=== PATIENT | male | born 1955 | race Hispanic/Latino ===

== ENCOUNTER → 2018-04-23 | Outpatient (CLI) | payer OTHER ==
[~2018-04-23] MED LIST: ASPI-1012 PO; BRIM5DRO4 OU; CHOL50004 PO; CLOT15CR62 TP; HYDR-4457 PO; LATA7.5D OU; LISI-613 PO; PREG100C PO; TIMO5SOL10 OU; TRIAM15CRM TP; [UNRECOGNIZED DRUG - CODE] PO
== END | disposition home or self-care (01) ==
LOC: OIH 08:07
PROVIDERS: ATTEND Internal Medicine
DX: Z13.6 Encounter for screening for cardiovascular disorders (principal)
CPT/HCPCS: 75571

== ENCOUNTER → 2018-08-04 | Outpatient (CLI) | payer OTHER | END | disposition home or self-care (01) | LOC: RAH 10:13 | PROVIDERS: ATTEND Internal Medicine | DX: R05 Cough (principal) | CPT/HCPCS: 71046 ==

== ENCOUNTER → 2018-08-19 | Outpatient (CLI) | payer OTHER ==
[~2018-08-19] MED LIST changes: +IOHEXOL 350 MG/ML 100ML INFUS..BTL IV ONE
== END | disposition home or self-care (01) ==
LOC: RAH 09:38
PROVIDERS: ATTEND Internal Medicine Gastroenterology
DX: K80.20 Calculus of gallbladder without cholecystitis without obstruction (principal); N28.1 Cyst of kidney, acquired
CPT/HCPCS: 74170; Q9967

== ENCOUNTER → 2019-08-30 | Outpatient (CLI) | payer OTHER ==
[~2019-08-30] MED LIST changes: -ASPI-1012 PO; -BRIM5DRO4 OU; -CHOL50004 PO; -CLOT15CR62 TP; -HYDR-4457 PO; -LATA7.5D OU; -LISI-613 PO; -PREG100C PO; -TIMO5SOL10 OU; -TRIAM15CRM TP; -[UNRECOGNIZED DRUG - CODE] PO
== END | disposition home or self-care (01) ==
LOC: RAH 08:40
PROVIDERS: ATTEND Internal Medicine Gastroenterology
DX: K86.3 Pseudocyst of pancreas (principal); R93.3 Abnormal findings on diagnostic imaging of other parts of digestive tract
CPT/HCPCS: 74170; Q9967

== ENCOUNTER → 2019-10-12 | Outpatient (CLI) | payer OTHER ==
[~2019-10-12] MED LIST changes: +ASPI-1012 PO; +BRIM5DRO4 OU; +CHOL50004 PO; +CLOT15CR23 TP; +HYDR-4457 PO; -IOHEXOL 350 MG/ML 100ML INFUS..BTL IV ONE; +LATA7.5D OU; +LISI-613 PO; +PREG100C PO; +TIMO5SOL10 OU; +TRIAM15CRM TP; +[UNRECOGNIZED DRUG - CODE] PO
== END | disposition home or self-care (01) ==
LOC: RAH 15:54
PROVIDERS: ATTEND Internal Medicine
DX: Z01.818 Encounter for other preprocedural examination (principal)
CPT/HCPCS: 71046

== ENCOUNTER 2020-05-03 08:37 | Day surgery (SDC) | payer OTHER ==
[2020-04-28 09:00] VITALS: BP 149/88
[2020-04-28 10:46] LABS: BASOPHILS % (AUTO) 1.2 % (0.0-5.0); EOSINOPHILS % (AUTO) 3.3 % (0.0-8.0); LYMPHOCYTES % (AUTO) 24.9 % (21.0-51.0); MEAN CORPUSCULAR HEMOGLOBIN 29.2 pg (27.0-33.0); MEAN CORPUSCULAR HGB CONC 32.5 g/dL (32.0-36.0); MONOCYTES % (AUTO) 17.6 % (3.0-13.0); NEUTROPHILS % (AUTO) 52.8 % (40.0-77.0); PLATELET COUNT (AUTO) 204 K/uL (130-400); RED BLOOD CELL COUNT(AUTO) 4.89 MIL/uL (4.50-6.20); RED CELL DISTRIBUTION WIDTH 14.1 % (11.0-15.5); WHITE BLOOD COUNT (AUTO) 4.9 K/uL (4.8-10.8)
[2020-04-28 11:00] LABS: CREATININE 0.8 mg/dL (0.5-1.5); POTASSIUM 4.1 mmol/L (3.5-5.1)
[~2020-05-03] VITALS: Ht 170.2 cm; Wt 104.8 kg
[2020-05-03] VITALS (18 sets, daily range): BP systolic 124–156; BP diastolic 72–89
[~2020-05-03 08:37] MED LIST changes: +AEC81 PO; -ASPI-1012 PO; -BRIM5DRO4 OU; -CHOL50004 PO; -CLOT15CR23 TP; -HYDR-4457 PO; +IBUP-2077 PO; -LATA7.5D OU; -LISI-613 PO; +LISI40TA9 PO; -PREG100C PO; +ROSU20TA31 PO; +TAMS-1 PO; -TIMO5SOL10 OU; -TRIAM15CRM TP; -[UNRECOGNIZED DRUG - CODE] PO
[2020-05-03] MEDS ORDERED: LACTATED RINGERS 1000ML 1,000 ML IV ONE (10:07)
[2020-05-03] MEDS ORDERED: EPINEPHRINE 1 MG/ML 30ML VIAL IJ ONE (12:02)
[2020-05-03] MEDS ORDERED: CEFAZOLIN SODIUM 1 GM VIAL ONE ×2 (12:11→14:15)
[2020-05-03] MEDS ORDERED: LIDOCAINE PF 2% 5ML ABBOJECT ONE (12:23)
[2020-05-03] MEDS ORDERED: DEXAMETHASONE SOD PHOSPHATE 10MG/ML 1ML VIAL ONE (12:23)
[2020-05-03] MEDS ORDERED: PROPOFOL 10 MG/ML 20ML VIAL IV ONE (12:23)
[2020-05-03] MEDS ORDERED: SUCCINYLCHOLINE CHLORIDE 20 MG/ML 10 ML VIAL ONE (12:23)
[2020-05-03] MEDS ORDERED: GLYCOPYRROLATE 1 MG/5 ML SYRINGE ONE (12:23)
[2020-05-03] MEDS ORDERED: MIDAZOLAM HCL 1 MG/ML 2ML VIAL ONE (12:23)
[2020-05-03] MEDS ORDERED: ROCURONIUM 10MG/1ML SYR 10 MG/ML ML ONE (12:24)
[2020-05-03] MEDS ORDERED: FENTANYL CITRATE PF 50 MCG/1 ML 2ML VIAL ONE (12:24)
[2020-05-03] MEDS ORDERED: NEOSTIGMINE 5MG/5ML SYR IV ONE (12:24)
[2020-05-03] MEDS ORDERED: ONDANSETRON HCL 4 MG/2 ML VIAL ONE (12:24)
[2020-05-03] MEDS ORDERED: ROPIVACAINE 0.5% 5MG/ML 30ML IJ ONE (12:31)
[2020-05-03] MEDS: CEFAZOLIN SODIUM 1 GM VIAL IVP ONE ×2 (12:52→13:00)
[2020-05-03] MEDS ORDERED: EPHEDRINE SULFATE 50 MG/ML AMPULE ONE (12:53)
[2020-05-03] MEDS ORDERED: HYDR-4060 PO (15:39)
[2020-05-03] MEDS ORDERED: CEPH500B PO (15:39)
== END 2020-05-03 17:50 | disposition home or self-care (01) ==
LOC: DAH 08:37
PROVIDERS: ATTEND Orthopaedic Surgery
DX: S46.011A Strain of muscle(s) and tendon(s) of the rotator cuff of right shoulder, initial encounter (principal); Z20.822 Contact with and (suspected) exposure to COVID-19; M65.811 Other synovitis and tenosynovitis, right shoulder; M19.011 Primary osteoarthritis, right shoulder; M25.811 Other specified joint disorders, right shoulder; I10 Essential (primary) hypertension; E78.5 Hyperlipidemia, unspecified; E66.9 Obesity, unspecified; Z87.891 Personal history of nicotine dependence; Z98.890 Other specified postprocedural states; Z90.49 Acquired absence of other specified parts of digestive tract; Z72.89 Other problems related to lifestyle; Z82.49 Family history of ischemic heart disease and other diseases of the circulatory system; Z79.01 Long term (current) use of anticoagulants; Z82.3 Family history of stroke; Z79.82 Long term (current) use of aspirin; Z79.899 Other long term (current) drug therapy; W19.XXXA Unspecified fall, initial encounter; Y93.89 Activity, other specified; Y92.89 Other specified places as the place of occurrence of the external cause
CPT/HCPCS: 23130; 23412; 29820; 36415; 64415; 76942; 80048; 85025; 93005; A4215; A4221; A4222; A4223; A4565; A4600; A4649 ×5; A4663; A4930 ×2; A6204; C1713; C9803; G0168; J0171; J0330; J0690 ×2; J1100; J2001; J2250; J2405; J2704; J2710; J2795; J3010; J3490 ×2; J7030; J7120; U0003

== ENCOUNTER → 2020-09-20 | Outpatient (CLI) | payer OTHER ==
[~2020-09-20] MED LIST changes: +CEPH500B PO; +HYDR-4060 PO; +IOHEXOL 350 MG/ML 100ML INFUS..BTL IV ONE
== END | disposition home or self-care (01) ==
LOC: RAH 07:49
PROVIDERS: ATTEND Internal Medicine Gastroenterology
DX: K80.20 Calculus of gallbladder without cholecystitis without obstruction (principal); K86.2 Cyst of pancreas
CPT/HCPCS: 74170; Q9967

== ENCOUNTER 2021-06-04 07:56 | Day surgery (SDC) | payer OTHER ==
[2021-05-22 11:42] LABS: BASOPHILS % (AUTO) 1.1 % (0.0-5.0); EOSINOPHILS % (AUTO) 2.7 % (0.0-8.0); HEMATOCRIT 40.9 % (42-54); LYMPHOCYTES % (AUTO) 25.3 % (21.0-51.0); MEAN CORPUSCULAR HGB CONC 32.3 g/dL (32.0-36.0); MEAN CORPUSCULAR VOLUME 89.9 fL (79-99); MONOCYTES % (AUTO) 12.5 % (3.0-13.0); PLATELET COUNT (AUTO) 194 K/uL (130-400); RED BLOOD CELL COUNT(AUTO) 4.55 MIL/uL (4.50-6.20); RED CELL DISTRIBUTION WIDTH 14.6 % (11.0-15.5); WHITE BLOOD COUNT (AUTO) 5.5 K/uL (4.8-10.8)
[2021-05-22 12:00] LABS: CREATININE 0.7 mg/dL (0.5-1.5); POTASSIUM 4.2 mmol/L (3.5-5.1)
[2021-05-23 11:48] VITALS: BP 140/80
[2021-06-04] VITALS (17 sets, daily range): BP systolic 114–141; BP diastolic 66–88
[~2021-06-04] VITALS: Ht 170.2 cm; Wt 108.4 kg
[~2021-06-04 07:56] MED LIST changes: +BRIM5DRO4 OU; -CEPH500B PO; +CLOP75TA32 PO; -HYDR-4060 PO; -IOHEXOL 350 MG/ML 100ML INFUS..BTL IV ONE; +ISOS30TA92 PO; +LATA7.5D OU; -ROSU20TA31 PO; +ROSU40TA21 PO; -TAMS-1 PO; +TIMO1DRO5 OU
[2021-06-04] MEDS ORDERED: LACTATED RINGERS 1000ML 1,000 ML IV ONE (09:26)
[2021-06-04] MEDS: CEFAZOLIN SODIUM 1 GM VIAL ONE ×2 (09:40→14:46)
[2021-06-04] MEDS ORDERED: METO-409 PO (09:47)
[2021-06-04] MEDS ORDERED: EPINEPHRINE 1 MG/ML 30ML VIAL IJ ONE (13:12)
[2021-06-04] MEDS ORDERED: ROPIVACAINE 0.5% 5MG/ML 30ML IJ ONE (13:57)
[2021-06-04] MEDS ORDERED: LIDOCAINE PF 100MG/5ML (2%) SYRINGE 5ML ONE (13:59)
[2021-06-04] MEDS ORDERED: GLYCOPYRROLATE 1 MG/5 ML SYRINGE ONE (14:00)
[2021-06-04] MEDS ORDERED: ROCURONIUM 10MG/1ML SYR 10 MG/ML ML ONE (14:00)
[2021-06-04] MEDS ORDERED: PROPOFOL 10 MG/ML 20ML VIAL IV ONE (14:00)
[2021-06-04] MEDS ORDERED: ONDANSETRON 4MG INJ ONE (15:11)
[2021-06-04] MEDS ORDERED: FENTANYL CITRATE PF 50 MCG/1 ML 2ML VIAL ONE (15:16)
[2021-06-04] MEDS ORDERED: MEPERIDINE-PF 25 MG/ML SYG ONE (15:56)
[2021-06-04] MEDS ORDERED: NEOSTIGMINE 5MG/5ML SYR IV ONE (16:02)
[2021-06-04] MEDS ORDERED: HYDR-4060 PO (16:20)
[2021-06-04] MEDS ORDERED: CEPH500B PO (16:20)
== END 2021-06-04 17:55 | disposition home or self-care (01) ==
LOC: DAH 07:56
PROVIDERS: ATTEND Orthopaedic Surgery
DX: M75.21 Bicipital tendinitis, right shoulder (principal); M25.511 Pain in right shoulder; G89.29 Other chronic pain; M25.811 Other specified joint disorders, right shoulder; I10 Essential (primary) hypertension; I25.10 Atherosclerotic heart disease of native coronary artery without angina pectoris; I25.2 Old myocardial infarction; Z79.899 Other long term (current) drug therapy; Z79.01 Long term (current) use of anticoagulants; Z79.82 Long term (current) use of aspirin; Z90.49 Acquired absence of other specified parts of digestive tract; Z87.891 Personal history of nicotine dependence; Z86.73 Personal history of transient ischemic attack (TIA), and cerebral infarction without residual deficits; Z98.890 Other specified postprocedural states
CPT/HCPCS: 29822; 29824; 29826; 36415; 64415; 76942; 80048; 85025; 87635; A4215; A4221; A4222; A4223; A4565; A4600; A4649 ×2; A4663; A4930; A6204; C9803; J0171; J0690; J2001; J2175; J2405; J2704; J2710; J2795; J3010; J3490; J7120

== ENCOUNTER 2021-06-11 05:40 | Emergency (ER) | payer OTHER ==
[~2021-06-11] VITALS: Ht 170.2 cm; Wt 104.3 kg
[~2021-06-11 05:40] MED LIST changes: +CEPH500B PO; +HYDR-4060 PO; +METO-409 PO
[2021-06-11 06:43] LABS: APPEARANCE,URINE CLEAR (CLEAR); BILIRUBIN,URINE NEGATIVE (NEGATIVE); COLOR,URINE YELLOW (YELLOW); GLUCOSE, URINE (UA) NEGATIVE (NEGATIVE); KETONES,URINE NEGATIVE (NEGATIVE); LEUKOCYTE ESTERASE ,URINE NEGATIVE (NEGATIVE); NITRATE,URINE NEGATIVE (NEGATIVE); OCCULT BLOOD,URINE NEGATIVE (NEGATIVE); PROTEIN,URINE NEGATIVE (NEGATIVE); UROBILINOGEN,URINE 0.2 mg/dL (0.2-1.0)
[2021-06-11 07:14] VITALS: BP 158/98
[2021-06-11] MEDS ORDERED: LINA145C PO (09:38)
== END 2021-06-11 10:05 | disposition home or self-care (01) ==
LOC: EDH 05:40
DX: R33.9 Retention of urine, unspecified (principal); K59.03 Drug induced constipation; I10 Essential (primary) hypertension; Z79.899 Other long term (current) drug therapy; Z79.82 Long term (current) use of aspirin
CPT/HCPCS: 51702; 74018; 81003

== ENCOUNTER → 2021-07-11 | Outpatient (CLI) | payer OTHER ==
[~2021-07-11] MED LIST changes: +LINA145C PO
== END | disposition home or self-care (01) ==
LOC: RAH 12:45
PROVIDERS: ATTEND Urology
DX: K80.20 Calculus of gallbladder without cholecystitis without obstruction (principal); R33.8 Other retention of urine; N28.1 Cyst of kidney, acquired; I25.10 Atherosclerotic heart disease of native coronary artery without angina pectoris; K57.20 Diverticulitis of large intestine with perforation and abscess without bleeding; K57.90 Diverticulosis of intestine, part unspecified, without perforation or abscess without bleeding; M47.815 Spondylosis without myelopathy or radiculopathy, thoracolumbar region
CPT/HCPCS: 74176

== ENCOUNTER 2022-03-06 14:55 | Emergency (ER) | payer OTHER, MEDICARE ==
[~2022-03-06] VITALS: Ht 170.2 cm; Wt 106.6 kg
[~2022-03-06 14:55] MED LIST changes: +APIX5TAB PO; -CEPH500B PO; -CLOP75TA32 PO; +DOXA2TAB2 PO; -HYDR-4060 PO; -IBUP-2077 PO; -LINA145C PO
[2022-03-06 15:39] LABS: BASOPHILS % (AUTO) 1.1 % (0.0-5.0); EOSINOPHILS % (AUTO) 2.7 % (0.0-8.0); HEMATOCRIT 41.3 % (42-54); LYMPHOCYTES % (AUTO) 24.7 % (21.0-51.0); MEAN CORPUSCULAR HEMOGLOBIN 27.9 pg (27.0-33.0); MEAN CORPUSCULAR HGB CONC 33.4 g/dL (32.0-36.0); MEAN CORPUSCULAR VOLUME 83.6 fL (79-99); MONOCYTES % (AUTO) 8.4 % (3.0-13.0); NEUTROPHILS % (AUTO) 62.7 % (40.0-77.0); PLATELET COUNT (AUTO) 201 K/uL (130-400); RED BLOOD CELL COUNT(AUTO) 4.94 MIL/uL (4.50-6.20); RED CELL DISTRIBUTION WIDTH 16.3 % (11.0-15.5); WHITE BLOOD COUNT (AUTO) 5.2 K/uL (4.8-10.8)
[2022-03-06 15:54] LABS: CREATININE 0.9 mg/dL (0.5-1.5); POTASSIUM 3.8 mmol/L (3.5-5.1)
[2022-03-06 15:58] LABS: ALBUMIN 3.9 g/dL (3.5-5.0); TOTAL PROTEIN, SERUM 7.2 g/dL (6.0-8.3)
[2022-03-06] MEDS ORDERED: ACETAMINOPHEN 500 MG TABLET PO ONE (18:30)
[2022-03-06 18:52] LABS: INR 0.97 (0.85-1.15); PROTHROMBIN TIME 10.6 SEC (9.6-11.6)
[2022-03-06 18:54] LABS: PARTIAL THROMBOPLASTIN TIME 26.3 SEC (26.3-35.5)
[2022-03-06 18:59] VITALS: BP 159/83
== END 2022-03-06 19:35 | disposition home or self-care (01) ==
LOC: EDH 14:55
DX: R51.9 Headache, unspecified (principal); T45.515A Adverse effect of anticoagulants, initial encounter; I48.91 Unspecified atrial fibrillation; E78.00 Pure hypercholesterolemia, unspecified; I10 Essential (primary) hypertension; Z79.01 Long term (current) use of anticoagulants; Z79.1 Long term (current) use of non-steroidal anti-inflammatories (NSAID); Z79.82 Long term (current) use of aspirin; Z79.899 Other long term (current) drug therapy
CPT/HCPCS: 36415; 70450; 80053; 85025; 85610; 85730

== ENCOUNTER → 2022-04-10 | Outpatient (CLI) | payer OTHER ==
[~2022-04-10] MED LIST changes: +IOHEXOL-350 50ML VIAL IV ONE
== END | disposition home or self-care (01) ==
LOC: RAH 07:32
PROVIDERS: ATTEND Internal Medicine
DX: K80.20 Calculus of gallbladder without cholecystitis without obstruction (principal); R93.3 Abnormal findings on diagnostic imaging of other parts of digestive tract; I70.8 Atherosclerosis of other arteries; M47.815 Spondylosis without myelopathy or radiculopathy, thoracolumbar region
CPT/HCPCS: 74170; Q9967

== ENCOUNTER 2023-10-03 05:55 | Day surgery (SDC) | payer OTHER, MEDICARE ==
[2023-10-01 10:02] VITALS: BP 148/87; PULSE 54; RESP 18
[2023-10-01 11:29] LABS: INR 1.06 (0.85-1.15); PROTHROMBIN TIME 11.4 SEC (9.6-11.6)
[2023-10-01 11:30] LABS: PARTIAL THROMBOPLASTIN TIME 26.4 SEC (26.3-35.5)
[~2023-10-03] VITALS: Ht 170.2 cm; Wt 108.0 kg
[2023-10-03] VITALS (14 sets, daily range): BP systolic 110–131; BP diastolic 58–79; PULSE 50–59; RESP 11–17
[~2023-10-03 05:55] MED LIST changes: -AEC81 PO; +AMLO2.5T4 PO; -BRIM5DRO4 OU; +BRIM5DRO5 OU; -DOXA2TAB2 PO; +DRON400T7 PO; -IOHEXOL-350 50ML VIAL IV ONE; +METO-391 PO; -METO-409 PO; -ROSU40TA21 PO; +ROSU40TA70 PO; -TIMO1DRO5 OU; +TIMO1DRO9 OU
[2023-10-03] MEDS: ceFAZolin SODIUM 2 GM VIAL ONE (06:31)
[2023-10-03] MEDS: LACTATED RINGERS 1000ML 1,000 ML IV ONE (06:32)
[2023-10-03] MEDS ORDERED: acetaMINOPHEN 1,000 MG/100 ML VIAL IV ONE (06:45)
[2023-10-03] MEDS ORDERED: FAMOTIDINE 20MG VIAL IV ONE (06:45)
[2023-10-03] MEDS ORDERED: KETAMINE 50MG/ML SYRINGE 50 MG/ML DISP.SYRIN ONE (06:46)
[2023-10-03] MEDS ORDERED: ROPivacaine 0.5% 5MG/ML 30ML ONE (06:46)
[2023-10-03] MEDS ORDERED: rocuRONium bROMide 10MG/1ML 5ML VL ONE (06:50)
[2023-10-03] MEDS ORDERED: LIDOCAINE PF 100MG/5ML (2%) SYRINGE 5ML ONE (06:50)
[2023-10-03] MEDS ORDERED: proPOFol 10 MG/ML 20ML VIAL IV ONE (06:50)
[2023-10-03] MEDS ORDERED: FENTanyl CITRate PF 50 MCG/1 ML 2ML VIAL ONE (06:51)
[2023-10-03] MEDS ORDERED: EPINEPHrine PF 1MG (1:1,000) 1 MG/ML AMP ONE (06:56)
[2023-10-03] MEDS ORDERED: ONDANSETRON 4MG INJ ONE (07:26)
[2023-10-03] MEDS ORDERED: dexaMETHasone SOD PHOSPHATE 10MG/ML 1ML VIAL ONE (07:26)
[2023-10-03] MEDS: ceFAZolin SODIUM 2 GM VIAL IVPB ONE (07:30)
[2023-10-03] MEDS ORDERED: ePHEDrine SULFate 50 MG/ML AMPULE ONE (07:37)
[2023-10-03] MEDS ORDERED: NEOSTIGMINE METHYLSULFATE 1MG/ML IV ONE (08:36)
[2023-10-03] MEDS ORDERED: GLYCOPYRROLATE 0.2 MG/ML 5 ML VIAL ONE (08:36)
[2023-10-03] MEDS ORDERED: HYDR-4060 PO (10:28)
[2023-10-03] MEDS ORDERED: CYCL5TAB PO (10:28)
[2023-10-03] MEDS ORDERED: TRAM50TA4 PO (12:11)
== END 2023-10-03 11:43 | disposition home or self-care (01) ==
LOC: DAH 05:55
PROVIDERS: ATTEND Student in an Organized Health Care Education/Training Program
DX: S43.432A Superior glenoid labrum lesion of left shoulder, initial encounter (principal); M75.22 Bicipital tendinitis, left shoulder; M75.42 Impingement syndrome of left shoulder; M19.012 Primary osteoarthritis, left shoulder; M75.102 Unspecified rotator cuff tear or rupture of left shoulder, not specified as traumatic; M94.212 Chondromalacia, left shoulder; M94.8X1 Other specified disorders of cartilage, shoulder; I10 Essential (primary) hypertension; I25.2 Old myocardial infarction; M17.11 Unilateral primary osteoarthritis, right knee; Z79.899 Other long term (current) drug therapy; Z79.01 Long term (current) use of anticoagulants; X58.XXXA Exposure to other specified factors, initial encounter; Y93.89 Activity, other specified; Y92.89 Other specified places as the place of occurrence of the external cause; Y99.8 Other external cause status
CPT/HCPCS: 85610; 85730; 36415; 29828; 64415; 29824; 29826; A4663; J7030; A4565; J7120; J3490 ×5; J3010; J1100; J2001; J0171 ×2; J2704; J2405; J2710; J2795; J0690 ×2; A6223; A4649 ×2; A5120; A4215; A4223; A4222; A4221; A4600

== ENCOUNTER 2023-12-30 07:01 | Observation (INO) | payer OTHER, MEDICARE ==
[2023-12-24 11:30] LABS: APPEARANCE,URINE CLEAR (CLEAR); BILIRUBIN,URINE NEGATIVE (NEGATIVE); COLOR,URINE LIGHT-YELLOW (YELLOW); GLUCOSE, URINE (UA) NEGATIVE (NEGATIVE); KETONES,URINE NEGATIVE (NEGATIVE); LEUKOCYTE ESTERASE ,URINE NEGATIVE Leu/uL (NEGATIVE); NITRATE,URINE NEGATIVE (NEGATIVE); OCCULT BLOOD,URINE NEGATIVE (NEGATIVE); PROTEIN,URINE NEGATIVE (NEGATIVE); UROBILINOGEN,URINE 0.2 mg/dL (0.2-1.0)
[2023-12-24 11:32] VITALS: BP 112/79; PULSE 54; RESP 18; TEMP 98.4
[2023-12-24 11:34] LABS: ADD UA MICROSCOPIC NO
[2023-12-24 11:40] LABS: BASOPHILS # (AUTO) 0.08 K/uL (0.00-0.20); BASOPHILS % (AUTO) 1.2 % (0.0-5.0); EOSINOPHILS % (AUTO) 1.5 % (0.0-8.0); HEMATOCRIT 44.3 % (42-54); IMMATURE GRANULOCYTE ABSOLUTE 0.02 K/uL (0-1); LYMPHOCYTES # (AUTO) 1.6 K/uL (1.0-4.8); LYMPHOCYTES % (AUTO) 23.9 % (21.0-51.0); MEAN CORPUSCULAR HEMOGLOBIN 29.8 pg (27.0-33.0); MEAN CORPUSCULAR HGB CONC 33.6 g/dL (32.0-36.0); MEAN CORPUSCULAR VOLUME 88.6 fL (79-99); MONOCYTES # (AUTO) 0.9 K/uL (0.1-1.0); MONOCYTES % (AUTO) 12.6 % (3.0-13.0); NEUTROPHILS # (AUTO) 4.1 K/uL (1.8-7.7); NEUTROPHILS % (AUTO) 60.5 % (40.0-77.0); PLATELET COUNT (AUTO) 245 K/uL (130-400); WHITE BLOOD COUNT (AUTO) 6.7 K/uL (4.8-10.8)
[2023-12-24 11:53] LABS: CREATININE 0.9 mg/dL (0.5-1.3); POTASSIUM 4.2 mmol/L (3.5-5.1)
[2023-12-24 11:57] LABS: INR 1.08 (0.85-1.15); PROTHROMBIN TIME 11.6 SEC (9.6-11.6)
[2023-12-24 11:58] LABS: PARTIAL THROMBOPLASTIN TIME 27.9 SEC (26.3-35.5)
[~2023-12-30] VITALS: Ht 170.2 cm; Wt 106.8 kg
[2023-12-30] VITALS (33 sets, daily range): BP systolic 99–144; BP diastolic 51–81; PULSE 52–76; RESP 13–18; TEMP 97.4–98.3; O2SAT 96
[~2023-12-30 07:01] MED LIST changes: +IBUP-2077 PO; -ROSU40TA70 PO; +ROSU40TA88 PO
[2023-12-30] MEDS ORDERED: MIDAZOLAM HCL 1 MG/ML 2ML VIAL ONE (07:34)
[2023-12-30] MEDS ORDERED: LIDOCAINE PF 100MG/5ML (2%) SYRINGE 5ML ONE (07:34)
[2023-12-30] MEDS ORDERED: proPOFol 10 MG/ML 20ML VIAL IV ONE (07:34)
[2023-12-30] MEDS ORDERED: rocuRONium bROMide 10MG/1ML 5ML VL ONE ×2 (07:35→08:45)
[2023-12-30] MEDS ORDERED: FENTanyl CITRate PF 50 MCG/1 ML 2ML VIAL ONE ×3 (07:35→10:48)
[2023-12-30] MEDS ORDERED: phenylEPHRINE HCL 10 MG/ML 1ML VIAL IV ONE (07:38)
[2023-12-30] MEDS ORDERED: ROPivacaine 0.5% 5MG/ML 30ML ONE (07:40)
--- NOTE | 2023-12-30 07:55 | NUR ---
ORTHO COORDINATOR: KOOSJR SCORE 8 COMPLETED ON PAPER.
[2023-12-30] MEDS: ceFAZolin SODIUM 2 GM VIAL ONE (07:58)
[2023-12-30] MEDS: LACTATED RINGERS 1000ML 1,000 ML IV ONE (07:59)
[2023-12-30] MEDS ORDERED: ceFAZolin SODIUM 1 GM VIAL ONE (08:22)
[2023-12-30] MEDS ORDERED: VANCOMYCIN 1G/250ML KIT 250 ML IV ONE (08:23)
[2023-12-30] MEDS: ceFAZolin SODIUM 2 GM VIAL IVPB ONE (08:25)
[2023-12-30] MEDS ORDERED: TRANEXAMIC ACID 1000MG/10ML ONE (08:33)
[2023-12-30] MEDS ORDERED: ondanSETRON 4MG INJ ONE (08:45)
[2023-12-30] MEDS ORDERED: dexaMETHasone SOD PHOSPHATE 10MG/ML 1ML VIAL ONE (08:45)
[2023-12-30] MEDS ORDERED: ketOROlac 30MG VIAL (30MG/ML) ONE (08:46)
[2023-12-30] MEDS ORDERED: NEOSTIGMINE METHYLSULFATE 1MG/ML IV ONE (10:16)
[2023-12-30] MEDS ORDERED: GLYCOPYRROLATE 0.2 MG/ML 5 ML VIAL ONE (10:16)
[2023-12-30] MEDS ORDERED: TEMAZepam 15 MG CAPSULE PO PRN (10:30)
[2023-12-30] MEDS: 0.9%NACL 1000ML 1,000 ML IV SCH (10:30)
[2023-12-30] MEDS ORDERED: PoTASSium chl 10% ELIXIR 20MEQ 20 MEQ/15 ML UDCUP PO PRN (10:30)
[2023-12-30] MEDS ORDERED: PoTASSium chloRIDE 20MEQ/100ML 100 ML IV PRN (10:30)
[2023-12-30] MEDS ORDERED: ondanSETRON 4MG INJ IVP PRN (10:30)
[2023-12-30] MEDS ORDERED: CALCIUM CARB 500MG PO PRN (10:30)
[2023-12-30] MEDS ORDERED: DiphenhydrAMINE HCL 50 MG/ML VIAL IVP PRN (10:30)
[2023-12-30] MEDS ORDERED: HYDROcodone/APAP 5/325 1 TAB TABLET PO PRN (10:30)
[2023-12-30] MEDS ORDERED: FERROUS FUMARATE 324 MG TABLET PO PRN (10:30)
[2023-12-30] MEDS ORDERED: PoTASSium chloRIDE 20MEQ ER 20 MEQ ERTAB PO PRN (10:30)
--- NOTE | 2023-12-30 10:39 | OP ---
Operative Note: DATE OF PROCEDURE: 12/30/23 SURGEON: URI POLLOCK MD GRAPHIC DESIGN ASSISTANT: [Cira Marks CFA] ANESTHESIA: [General anesthesia plus regional] PREOPERATIVE DIAGNOSIS: [Left knee osteoarthritis] POSTOPERATIVE DIAGNOSIS: [Left knee osteoarthritis] IMPLANTS: [BIOMET VANGUARD. Femur size 67.5 left CR. Tibia size 75 fixed cruciate. Tibial liner size 10 by 71/75 CR. Patella size 31 x 8, asymmetric.] PROCEDURE: [Left total knee arthroplasty] ESTIMATED BLOOD LOSS: [100 mL] INDICATIONS: [68-year-old male with history of pain to the left knee that has a longer responded to conservative treatment. MRI with presence of grade 4 chondral lesions in the patella and femur as well as meniscal tear. The patient is brought to the OR for a total knee arthroplasty The patient understood the need for the procedure, risks, benefits and possible complications and agreed signed the consent form] DESCRIPTION OF PROCEDURE: [After adequate general anesthesia was achieved and regional block obtained the left lower extremity was prepped and draped in the usual manner previous placement of the tourniquet in the proximal thigh. The extremity was elevated and exsanguinated with an Esmarch bandage and the tourniquet was inflated to 250 mmHg removing then the Esmarch band. With the knee in flexion a longitudinal incision was then made in the anterior aspect through the skin followed by dissection of the subcutaneous tissue. An interosseous needle was then penetrated just medial to the tibial tuberosity into the proximal metaphysis and through this needle we injected 50 mL of normal saline solution mixed with 500 mg of vancomycin proceeded then to remove the needle. A paramedian approach was then made with the Bovie cautery cutting through the quadriceps tendon, medial patellar retinaculum and patellar tendon retinaculum. The retropatellar tendon fat was then excised and the soft tissue elements of the tibia were elevated subperiosteally and retractors were applied medially and laterally . The anterior cruciate ligaments was resected. With the use of a drill a starting hole was made in the distal femur entering the intramedullary canal and then after removal of the drill an intramedullary guide was inserted with a 5 degree valgus block that touched the distal femur and to this the distal femoral cutting guide was then applied anteriorly and was secured to the distal femur with the use of pins. The intramedullary guide was then removed and with the use of the oscillating saw we proceeded to resect the distal femur removing the fragments and the guide. The femoral sizer was then applied distally and drill holes were made removing the sizer and the 4-in-1 cutting block was then inserted and the anterior, posterior and chamfer cuts were made removing the fragments and the block. The posterior cruciate ligament retractor was then inserted posterior to the tibia and this was brought forward proceeding then to apply the external tibial alignment guide and secured the proximal cutting guide to the tibia with the use of pins. With the use of the oscillating saw the proximal cut tibia was made protecting the integrity of the PCL. The bone fragment was removed and the trial tibia plate was chosen. At this point the menisci were removed sharply and with the use of the curved osteotome the posterior osteophytes of the femur were removed. The trial components were then inserted at the femur and tibia with a trial liner bringing the knee into extension noticing that the patient had a very stable knee in flexion, extension and with valgus and varus stress. The knee was maintained in extension and the patella was then addressed proceeding to measure its thickness and then with the use of the oscillating saw we removed bone from the articular surface and restored the height with application of a trial component after 3 peg holes were made. The patellofemoral ligament was removed and then the patellofemoral tracking was checked noticed to be tracking laterally proceeded then to do lateral retinacular release that brought the tracking back to normal. At this moment all the components were removed, the tibia after the metaphyseal defect was created and while cement was being mixed on the back table we proceeded to irrigate the joint with antibiotic solution and then cover the entry to the femoral canal with a bone plug. Once the cement was ready we proceeded to apply it first to the tibia surface inserting the final component and then to the femoral surface and inserted the final component removing the excess cement and then applying a trial liner bringing the knee into extension for compression. Then we proceeded to irrigate the patella surface and dried it applying then bone cement and the final patellar component was inserted and was secured with application of a clamp. The joint was irrigated with a warm diluted Betadine solution while the cement dried followed by irrigation with an tibiotic solution. The trial liner was removed as well as the patellar clamp and we proceeded then to irrigate the posterior aspect of the joint to remove all the remaining debris and the final tibial liner was inserted and locked against the tibia . The range of motion was checked and noticed to be adequate with full extension and flexion, no laxity in valgus or varus stress and with adequate patellofemoral tracking. The patient had no anterior or posterior drawer. After further irrigation the wound was then closed with approximation of the quadriceps tendon, patellar retinaculum and patellar tendon retinaculum with #1 Vicryl crossed stitches followed by deflation of the tourniquet and hemostasis of the subcutaneous tissue. We then proceeded with the closure of the subcutaneous tissue with 2-0 Monocryl inverted stitches and the skin was closed with 3-0 Monocryl subcuticularly. The wound was covered with a suction dressing followed by application of an David bandage for compression and the drapes were then removed transferring the patient to the hospital bed and then taken to recovery room for follow-up by anesthesia. There were no complications during the procedure.] URI POLLOCK MD Dec 30, 2023 10:38
--- NOTE | 2023-12-30 14:25 | NUR ---
PATIENT ARRIVED TO UNIT BY STRETCHER WITH FAMILY AT BEDSIDE. NO S/S OF DISTRESS NOTED. SCD'S APPLIED TO B/L LOWER EXT. ICE PACKS IN PLACE POST OP VITALS INITIATED. PATIENT DENIES PAIN AT THIS TIME. BED IN LOWEST POSITION AND CALL LIGHT IN REACH
--- NOTE | 2023-12-30 15:00 | NUR ---
PATIENT EDUCATED ON USE AND IMPORTANCE OF USING HIS IS. PATIENT ABLE TO DEMONSTRATE BACK REACHING A TOTAL OF 1350
[2023-12-30] MEDS ORDERED: ceFAZolin SODIUM 1 GM VIAL IVP SCH (15:30)
[2023-12-30] MEDS: HYDROcodone/APAP 5/325 1 TAB TABLET PO PRN (16:08)
[2023-12-30] MEDS: ceFAZolin SODIUM 2 GM VIAL IVP SCH (16:08)
--- NOTE | 2023-12-30 16:15 | NUR ---
ORTHO COORDINATOR: TEACHING REGARDING DVT AND PNEUMONIA PREVENTION, PAIN EXPECTATIONS, PAIN MANAGEMENT. PATIENT IN BED. INCENTIVE SPIROMETER ON TRAY TABLE. B SCD SLEEVES IN PLACE AND FUNCTIONING. PATIENT RETURN DEMONSTRATED PROPER USE OF INCENTIVE SPIROMETER AND B FOOT FLEXION AND EXTENSION EXERCISES. PAIN MANAGEMENT DISCUSSED. PATIENT HAD R TKA IN 2018 AND HAS REALISTIC PAIN EXPECTATIONS. HAS BEEN PREMEDICATED FOR PHYSICAL THERAPY. 1620 PHYSICAL THERAPY AT BEDSIDE, WILL REINFORCE TEACHING IN MORNING.
--- NOTE | 2023-12-30 18:31 | NUR ---
PT eval completed/ Pt has ice pack, SCDs and fall alarm in place. Pt instructed to call for help and call for pain meds. Pt education on DC plan and HEP. Pt not able to ambulate on eval therefore should be up to chair or bed side only withnursing. Note on board.
[2023-12-30] MEDS: LATANOPROST 2.5 ML DROPS OU SCH (19:55)
[2023-12-30] MEDS: DRONEDARONE HYDROCHLORIDE 400 MG TABLET PO SCH (19:55)
[2023-12-30] MEDS: amLODIPine 2.5 MG TAB PO SCH (19:56)
[2023-12-30] MEDS: metOPROLol sucCINATE 50 MG TAB.SR.24H PO SCH (19:56)
[2023-12-30] MEDS: atorVAStatin 40 MG TABLET PO SCH (19:56)
[2023-12-30] MEDS: FAMOTIDINE 20MG TAB PO SCH (19:56)
[2023-12-30] MEDS: APIXaban 5 MG TABLET PO SCH (19:56)
[2023-12-30] MEDS: TIMOLOL MALEATE 0.5% 5 ML BOTTLE OP SCH (21:00)
[2023-12-31 04:22] VITALS: BP 123/67; PULSE 57; RESP 18; TEMP 97.8
[2023-12-31 05:17] LABS: HEMATOCRIT 33.3 % (42-54); MEAN CORPUSCULAR HEMOGLOBIN 29.6 pg (27.0-33.0); MEAN CORPUSCULAR HGB CONC 32.7 g/dL (32.0-36.0); MEAN CORPUSCULAR VOLUME 90.5 fL (79-99); RED BLOOD CELL COUNT(AUTO) 3.68 MIL/uL (4.50-6.20); RED CELL DISTRIBUTION WIDTH 14.4 % (11.0-15.5); WHITE BLOOD COUNT (AUTO) 7.6 K/uL (4.8-10.8)
[2023-12-31 05:24] LABS: CREATININE 0.8 mg/dL (0.5-1.3); POTASSIUM 3.9 mmol/L (3.5-5.1)
[2023-12-31] MEDS: ketOROlac 15MG/ML VIAL (15MG/ML) IV PRN (05:40)
[2023-12-31 07:00] VITALS: BP 121/77; PULSE 66; RESP 20; TEMP 98.4
[2023-12-31 08:10] VITALS: O2SAT 98
--- NOTE | 2023-12-31 08:21 | PN ---
Ortho postop day one. This morning patient is awake alert and oriented. He is in no acute distress. Reports adequate pain control. Vital signs reviewed. Afebrile. Patient laboratory results reviewed. Noted to have a drop in hemoglobin and hematocrit as expected after total knee arthroplasty. Patient is asymptomatic. We will address per protocol as necessary. Voiding on his own without difficulty. Performing incentive spirometry as instructed. Dressing is intact to the anterior joint. Gastrocnemius soft nontender negative Homans. Operative findings discussed with the patient. Distal neurovascular exam intact. He has ice present of the operative site. Yesterday therapy had the opportunity to stand him and is pending further physical therapy this morning. Anticipated discharge goal is home health/PT preferably [facility]. Assessment: Status post left total knee arthroplasty. Asymptomatic acute postoperative blood loss anemia. Plan: Continue with Dr. Washington TKA protocol and discharge planning. Asymptomatic acute postoperative blood loss anemia addressed with the protocol as necessary. Vitals/Labs Vital Signs Date Time Temp Pulse Resp B/P (MAP) Pulse Ox O2 Delivery O2 Flow Rate FiO2 12/31/23 07:00 98.4 66 20 121/77 98 Room Air 21 12/31/23 04:22 2.0 Laboratory Tests 12/31/23 04:50 Medications Current Medications Lactated Ringer's 1,000 ml @ As Directed STK-MED ONCE IV Last administered on 12/30/23at 07:59; Start 12/30/23 at 07:25; Stop 12/30/23 at 07:25; Status DC Cefazolin Sodium 2 gm STK-MED ONCE .ROUTE; Start 12/30/23 at 07:25; Stop 12/30/23 at 07:25; Status DC Lidocaine HCl 100 mg STK-MED ONCE .ROUTE; Start 12/30/23 at 07:34; Stop 12/30/23 at 07:34; Status DC Propofol 200 mg STK-MED ONCE IV; Start 12/30/23 at 07:34; Stop 12/30/23 at 07:34; Status DC Midazolam HCl 2 mg STK-MED ONCE .ROUTE; Start 12/30/23 at 07:34; Stop 12/30/23 at 07:35; Status DC Rocuronium [place] 50 mg STK-MED ONCE .ROUTE; Start 12/30/23 at 07:35; Stop 12/30/23 at 07:35; Status DC Fentanyl Citrate 100 mcg STK-MED ONCE .ROUTE; Start 12/30/23 at 07:35; Stop 12/30/23 at 07:35; Status DC Phenylephrine HCl 10 mg STK-MED ONCE IV; Start 12/30/23 at 07:38; Stop 12/30/23 at 07:39; Status DC Ropivacaine 150 mg STK-MED ONCE .ROUTE; Start 12/30/23 at 07:40; Stop 12/30/23 at 07:40; Status DC Cefazolin Sodium 1 gm STK-MED ONCE .ROUTE; Start 12/30/23 at 08:22; Stop 12/30/23 at 08:23; Status DC Vancomycin HCl 250 ml @ As Directed STK-MED ONCE IV; Start 12/30/23 at 08:23; Stop 12/30/23 at 08:23; Status DC Tranexamic Acid 1,000 mg STK-MED ONCE .ROUTE; Start 12/30/23 at 08:33; Stop 12/30/23 at 08:33; Status DC Ondansetron HCl 4 mg STK-MED ONCE .ROUTE; Start 12/30/23 at 08:45; Stop 12/30/23 at 08:45; Status DC Dexamethasone Sodium Phosphate 10 mg STK-MED ONCE .ROUTE; Start 12/30/23 at 08:45; Stop 12/30/23 at 08:45; Status DC Rocuronium [place] 50 mg STK-MED ONCE .ROUTE; Start 12/30/23 at 08:45; Stop 12/30/23 at 08:45; Status DC Ketorolac Tromethamine 30 mg STK-MED ONCE .ROUTE; Start 12/30/23 at 08:46; Stop 12/30/23 at 08:46; Status DC Fentanyl Citrate 100 mcg STK-MED ONCE .ROUTE; Start 12/30/23 at 09:00; Stop 12/30/23 at 09:01; Status DC Cefazolin Sodium 2 gm STK-MED ONCE IVPB Last administered on 12/30/23at 08:25; Start 12/30/23 at 08:25; Stop 12/30/23 at 09:18; Status DC Cefazolin Sodium 3 gm STK-MED ONCE IVPB Last administered on 12/30/23at 08:51; Start 12/30/23 at 08:51; Stop 12/30/23 at 09:18; Status DC Glycopyrrolate 1 mg STK-MED ONCE .ROUTE; Start 12/30/23 at 10:16; Stop 12/30/23 at 10:17; Status DC Neostigmine Methylsulfate 10 mg STK-MED ONCE IV; Start 12/30/23 at 10:16; Stop 12/30/23 at 10:17; Status DC Sodium Chloride 1,000 ml @ 100 mls/hr Q10H IV; Start 12/30/23 at 10:30; Stop 12/31/23 at 10:29 Polyethylene Glycol 17 gm DAILY PO; Start 12/31/23 at 09:00; Stop 01/30/24 at 08:59 Bisacodyl 10 mg DAILY PRN RC; Start 01/02/24 at 10:30; Stop 02/01/24 at 10:29 Ketorolac Tromethamine 15 mg Q6H PRN IV Last administered on 12/31/23at 05:40; Start 12/30/23 at 10:30; Stop 01/04/24 at 10:29 Famotidine 20 mg BID PO Last administered on 12/30/23at 19:56; Start 12/30/23 at 21:00; Stop 01/29/24 at 20:59 Tamsulosin HCl 0.4 mg DAILY PO; Start 12/31/23 at 09:00; Stop 01/30/24 at 08:59 Ferrous Fumarate 324 mg DAILY PRN PO; Start 12/30/23 at 10:30; Stop 01/29/24 at 10:29 Temazepam 15 mg HS PRN PO; Start 12/30/23 at 10:30; Stop 01/29/24 at 10:29 Ondansetron HCl 4 mg Q6H PRN IVP; Start 12/30/23 at 10:30; Stop 01/29/24 at 10:29 Calcium Carbonate 500 mg Q12H PRN PO; Start 12/30/23 at 10:30; Stop 01/29/24 at 10:29 Diphenhydramine HCl 25 mg Q6H PRN IVP; Start 12/30/23 at 10:30; Stop 01/29/24 at 10:29 Cefazolin Sodium 2 gm Q8H IVP; Start 12/30/23 at 15:30; Stop 12/30/23 at 15:08; Status DC Potassium Chloride 100 ml @ 100 mls/hr AD PRN IV; Start 12/30/23 at 10:30; Stop 01/29/24 at 10:29 Potassium Chloride 20 meq AD PRN PO; Start 12/30/23 at 10:30; Stop 01/29/24 at 10:29 Potassium Chloride 20 meq AD PRN PO; Start 12/30/23 at 10:30; Stop 01/29/24 at 10:29 Acetaminophen/ Hydrocodone Bitart Q4H PRN PO; Start 12/30/23 at 10:30; Stop 12/30/23 at 10:48; Status DC Acetaminophen/ Hydrocodone Bitart 1 tab Q4H PRN PO Last administered on 12/30/23at 16:08; Start 12/30/23 at 11:00; Stop 01/04/24 at 10:59 Acetaminophen/ Hydrocodone Bitart 2 tab Q4H PRN PO; Start 12/30/23 at 11:00; Stop 01/04/24 at 10:59 Fentanyl Citrate 100 mcg STK-MED ONCE .ROUTE; Start 12/30/23 at 10:48; Stop 12/30/23 at 10:48; Status DC Amlodipine Besylate 2.5 mg HS PO Last administered on 12/30/23at 19:56; Start 12/30/23 at 21:00; Stop 01/29/24 at 20:59 Apixaban 5 mg BID PO Last administered on 12/30/23at 19:56; Start 12/30/23 at 21:00; Stop 01/29/24 at 20:59 Dronedarone 400 mg BID PO Last administered on 12/30/23at 19:55; Start 12/30/23 at 21:00; Stop 01/29/24 at 20:59 Isosorbide Mononitrate 30 mg DAILY PO; Start 12/31/23 at 09:00; Stop 01/30/24 at 08:59 Lisinopril 40 mg DAILY PO; Start 12/31/23 at 09:00; Stop 01/30/24 at 08:59 Metoprolol Succinate 50 mg HS PO Last administered on 12/30/23at 19:56; Start 12/30/23 at 21:00; Stop 01/29/24 at 20:59 Latanoprost 1 DROP HS OU Last administered on 12/30/23at 19:55; Start 12/30/23 at 21:00; Stop 01/29/24 at 20:59 Atorvastatin Calcium 80 mg HS PO Last administered on 12/30/23at 19:56; Start 12/30/23 at 21:00; Stop 01/29/24 at 20:59 Timolol Maleate 1 DROP BID OP; Start 12/30/23 at 21:00; Stop 01/29/24 at 20:59 Cefazolin Sodium 2 gm Q8H IVP Last administered on 12/30/23at 22:40; Start 12/30/23 at 15:30; Stop 12/30/23 at 23:31; Status DC HUSSEIN MAURER NP Dec 31, 2023 08:21
[2023-12-31] MEDS: polyETHYLene GLYCol 3350 17 GM POWD.PACK PO SCH (09:00)
[2023-12-31] MEDS: tamSULOsin HCL 0.4 MG CAP.ER.24H PO SCH (09:30)
[2023-12-31] MEDS: LISINOPRIL 40 MG TABLET PO SCH (09:30)
[2023-12-31] MEDS: ISOSORBIDE MONO 30MG SR TAB PO SCH (09:30)
[2023-12-31 11:00] VITALS: BP 118/70; PULSE 68; RESP 20; TEMP 97.8
--- NOTE | 2023-12-31 12:30 | NUR ---
ORTHO COORDINATOR: REINFORCED TEACHING REGARDING DVT AND PNEUMONIA PREVENTION. PAIN EXPECTATIONS AND PAIN MANAGEMENT REVIEWED. PATIENT IN BED. REPORTS JUST RETURNING TO BED. REPORTS PHYSICAL THERAPY GOING WELL. PAIN MANAGED. ENCOURAGED PATIENT TO CONTINUE USE OF INCENTIVE SPIROMETER ONCE HOME AND CONTINUE FOOT FLEXION AND EXTENSION. ENCOURAGED PATIENT TO CONTINUE PREMEDICATING PRIOR TO PHYSICAL THERAPY WITH HOME HEALTH. PATIENT VERBALIZED UNDERSTANDING. NO ADDITIONAL QUESTIONS OR CONCERNS AT THIS TIME.
--- NOTE | 2023-12-31 12:49 | NUR ---
DCP CM DC HONING MACHINE SET UP OPERATOR TOOL MET WITH PT THIS MORNING. PT IS INDEPENDENT PRIOR TO SURGERY, LIVES AT HOME WITH . PT HAS A CANE. DENIES ANY OTHER EQUIPMENT/SERVICES. FEELS SAFE TO GO BACK HOME STILL WORK AND DRIVE, ABLE TO ASSIST WITH TRANSPORTATION AND NEEDS NECESSARY. DISCUSSED MD RECOMMENDATIONS FOR HOME W/HH AND DME WILL NEED STANDARD WALKER, PT AGREEABLE, CONSENT SIGNED [facility] FOR ANY IN NETWORK HOME HEALTH AND DME. CM SENT ORDER, CLINICALS, PT TO [facility] AND [facility] VIA SECURE FAX AND EMAIL. PENDING REP RESPONSE. PATIENT PENDING APPROVAL FOR [facility]. PT PENDING APPROVAL W/[facility] FOR STANDARD WALKER AND PENDING DELIVERY IN PT'S ROOM. PRIMARY NURSE ROGER MADE AWARE. DR POLLOCK UPDATED. CM TO CONTINUE TO FOLLOW UP. Addendum: 12/31/23 at 1255 by COLLETTE HANSON LVN CM Amended: Links added.
[2023-12-31 14:00] VITALS: BP 120/62; PULSE 72; RESP 20; TEMP 97.8
--- NOTE | 2023-12-31 14:15 | NUR ---
CM Note: APC approval CM spoke to Sowmya epstein/PILI AGUSTIN, pt has approval, will see patient day after D/C. Pt pending approval and delivery for standard walker w/[facility] at this time. CM to continue to follow up.
--- NOTE | 2023-12-31 14:24 | NUR ---
CM Note: [facility] pending delivery CM spoke to Jean w/[facility], per rep DME not covered by insurance, will have to pay privately $50, rep will coordinate w/pt regarding private pay, then will deliver DME in pt's room once payment arrangement made. CM to continue to follow up.
[2023-12-31] MEDS ORDERED: HYDR-4060 PO (15:43)
--- NOTE | 2023-12-31 16:45 | NUR ---
CM Note: DME CM spoke to Jean epstein/[facility], per rep spoke to pt spouse and spouse verbalized she will purchase walker somewhere else at this time. CM met with pt discussed above, informed pt walker need to be in room prior to DC in order for pt to safely DC home today. Informed pt of hospital lending walker until able to purchase one for pt. Pt verbalized he already has a working standard walker that he also purchased privately from his past right knee surgery. Pt verbalized he told [place] Public Transportation Inspector Juli this morning that he has a standard walker and it is still in good condition, but [place] Public Transportation Inspector said "Oh don't worry we can get you a new one." CM asked patient to have bring walker in the hospital for nurse to check prior to DC. Pt called , instructed to brings standard walker to hospital when she comes and machine operator picker pt, agreeable and verbalized will bring walker in room prior to DC. Primary nurse Treva made aware. Pt safe to DC home once arrive w/walker. CM to continue to follow up.
[2023-12-31] MEDS: HYDROcodone/APAP 5/325 1 TAB TABLET PO PRN (18:15)
--- NOTE | 2024-01-01 11:20 | NUR ---
Change in HH Agency Received call from Dr. Washington' office stating patient is not happy with [facility] and is requesting [facility]. [facility] signed for any in-network HH. CM sent referral via [facility] and notified Davey Maya with [facility] of incoming referral. CM to continue to follow.
[2024-01-02] MEDS ORDERED: BisaCODYL 10 MG SUPP.RECT RC PRN (10:30)
== END 2023-12-31 19:25 | disposition home health service (06) ==
LOC: DAH 07:01 → DAHIP 07:02 → 4AH 14:25
PROVIDERS: ADMIT Orthopaedic Surgery; ATTEND Orthopaedic Surgery
DX: M17.12 Unilateral primary osteoarthritis, left knee (principal); M25.562 Pain in left knee; I10 Essential (primary) hypertension; I25.10 Atherosclerotic heart disease of native coronary artery without angina pectoris; G47.30 Sleep apnea, unspecified; Z98.890 Other specified postprocedural states; Z79.899 Other long term (current) drug therapy
CPT/HCPCS: 80048 ×2; 85025; 85610; 85730; 87086; 81003; 36415 ×2; 87641; 27447; 64447; 96365; 96366; 88311; 88305; 97161; 97530 ×4; 96375; 85027; 97116 ×2; G0378 ×30; A4663; J7120 ×2; J0690 ×6; J3010 ×3; J1100; J3490 ×3; J2003; J2250; J2704; J2405; J1885 ×2; J2710; J3370; J2795; J2371; A9272; A4649 ×3; A4930 ×2; C1713; C1776; A5120; A4215; A4223 ×2; A4222; A4221; A4216

== ENCOUNTER 2024-01-20 09:28 | Emergency (ER) | payer OTHER, MEDICARE ==
[~2024-01-20] VITALS: Ht 170.2 cm; Wt 101.2 kg
[~2024-01-20 09:28] MED LIST changes: +HYDR-4060 PO; -IBUP-2077 PO
--- NOTE | 2024-01-20 09:39 | ERN ---
General Chief Complaint: Post-Op Problem Stated Complaint: RT KNEE SWELLING. S/P TOTAL KNEE REPLACEMENT Time Seen by MD: 09:31 History of Present Illness Initial Comments 69-year-old male presents to the ED for evaluation of left lower extremity postop. Patient reports he was seen at Dr. Washington office and was told to come to the ER to rule out DVT since they did not like the way his leg was looking. Allergies: Coded Allergies: No Known Drug Allergies (Unverified Allergy, Unknown, 06/12/15) Home Meds Active Scripts Hydrocodone/Acetaminophen (Hydrocodon-Acetaminophen 5-325) 5 Mg-325 Mg Tablet, 1-2 EACH PO Q8H for acute post-op pain, #42 TAB 0 Refills Prov:URI WASHINGTON MD 12/31/23 Reported Medications Amlodipine Besylate (Amlodipine Besylate) 2.5 Mg Tablet, 2.5 MG PO HS, TAB 10/01/23 Metoprolol Succinate (Metoprolol Succinate) 50 Mg Tab.er.24h, 50 MG PO HS, TAB 10/01/23 Dronedarone Hydrochloride (Multaq) 400 Mg Tablet, 400 MG PO BID, TAB 10/01/23 Apixaban (Eliquis) 5 Mg Tablet, 5 MG PO BID, #60 TAB 03/05/22 Latanoprost/Pf (Latanoprost 0.005% Eye Drop) 7.5 Ml Drops, 1 DROP OU HS, DROP 05/23/21 Brimonidine Tartrate (Brimonidine Tartrate) 5 Ml Drops, 1 DROP OU BID, DROP 05/23/21 Timolol Maleate/Pf (Timolol Maleate 0.5% Eye Drop) 1 Each Droperette, 1 DROP OU BID, DROP 05/23/21 Rosuvastatin Calcium (Rosuvastatin Calcium) 40 Mg Tablet, 40 MG PO HS, TAB 05/23/21 Isosorbide Mononitrate (Isosorbide Mononitrate ER) 30 Mg Tab.er.24h, 30 MG PO DAILY, TAB 05/23/21 Lisinopril (Lisinopril) 40 Mg Tablet, 40 MG PO DAILY, TAB 05/02/20 Past Medical History Past Medical History: A-Fib, High Cholesterol, Hypertension, IA Past Surgical History: Appendectomy, Other Surgical History Other: BACK, RT SHOULDER, RT KNEE REPLACEMENT, ABD HERNIA REPAIR Social History Social History: Negative, Lives with family ROS Dictation Constitutional: Negative for fever,chills, and weight loss Eyes: Negative for injury, pain,redness, and discharge ENT: Negative for injury,pain or swelling Cardiovascular: Negative for chest pain, palpitations, and edema Respiratory: Negative for shortness of breath, cough, and wheezing, Abdomen/GI: Negative for abdominal pain, nausea, vomiting, diarrhea, and constipation Back: Negative for injury and pain : Negative for injury, bleeding and discharge MS/Extremity: Right lower extremity swelling Negative for injury and deformity Skin: Negative for rash, and discoloration Neuro: Negative for headache, weakness, numbness, tingling, and seizure Psych: Negative for suicide ideation, homicidal ideation, and hallucinations Physical Exam Physical Exam Dictation General: awake, alert, NAD Head/Face: Normocephalic, atraumatic Eyes: PERRL, EOMI, vision at baseline ENT: oral cavity clear, TMs clear, no signs of infection Neck: Trachea midline, supple, no nuchal rigidity Cardiovascular: RRR, normal S1/S2, No MRGs, no JVD Respiratory: CTAB, no respiratory distress, No rales or wheezes Abdomen: Soft, non-tender, non-distended, normal bowel sounds, no guarding or rebound. Skin: Warm, dry, normal turgor, no rash MS/Extremity: Pulses equal, no cyanosis, neurovascular intact, left lower extremity mild swelling, erythematous, mild tenderness Neuro: COAx4, GCS 15, strength 5/5, CN 2-12 intact, normal cerebellar exam, normal gait, Psych: Normal behavior, mood, and affect normal Results EKG/XRAY/US/CT/MRI Ultrasound Comment As per refrigerator repair technician, negative DVT. MDM MDM: Differential diagnosis: DVT, postop, lower extremity pain Previous outside records reviewed: Old ER visits. Need for hospitalization: Patient does not meet criteria for hospitalization. Need for emergency major/minor surgery: No Patient's prior external medical records from other ER visits were reviewed by me as indicated. Prior testing and results from previous visits were reviewed. Prior tests were taken into account with medical decision making and resource utilization, independent historian/historians were used to obtain complete medical history. I independently interpreted the test that were performed, results were reviewed by me and considered findings on radiology if ordered. Medical management and examination interpretation discussions were had by me with other qualified healthcare professionals as indicated for the patient's care. ED Course Orders Procedure Category Date Status Time Us Venous Doppler US 01/20/24 Resulted Unilateral 09:34 Vital Signs Date Time Temp Pulse Resp B/P (MAP) Pulse Ox O2 Delivery O2 Flow Rate FiO2 01/20/24 09:44 99.0 65 18 129/72 97 Room Air* 0 21 01/20/24 09:30 97.9 72 16 133/81 97 Room Air 0 DX & DISP Disposition: Discharge Departure Impression: Primary Impression: Postop check Additional Impression: Encounter for evaluation of wound Condition: Stable Additional Instructions: FOLLOW-UP WITH PRIMARY CARE PROVIDER IN 1 TO 2 DAYS. TAKE MEDICATIONS DIRECT ED HERE IN THE EMERGENCY ROOM. OKAY TO CONTINUE HOME MEDICATIONS UNLESS OTHERWISE DISCUSSED DURING YOUR VISIT IN THE EMERGENCY ROOM TODAY. RETURN TO YOUR NEAREST EMERGENCY ROOM IF SYMPTOMS WORSEN OR IF THERE IS NO IMPROVEMENT. CALL 911 IF YOU NEED IMMEDIATE ASSISTANCE. TAKE TYLENOL [id number] NEEDED AND IF NO CONTRAINDICATIONS ARE PRESENT. INCREASE ORAL HYDRATION. A WOUND CULTURE OR URINE CULTURE WAS ORDERED HERE IN THE EMERGENCY ROOM DEPARTMENT PLEASE FOLLOW-UP WITH PRIMARY CARE PROVIDER AND ADVISE THEM TO GET REPEAT PORTS FROM OUR FACILITY. IF YOU HAD ANY ANGELICA WRAP/SPLINTS THAT WERE APPLIED HERE, PLEASE DO NOT REMOVE THEM UNTIL YOU SEE YOUR PRIMARY CARE OR SPECIALTY. Referrals: Referrals: STEVEN DUFF MD (PCP) Time of Disposition: 10:48 I have reviewed, & agreed with my scribe's, documentation. (Entered by Sabas Strickland, acting as a scribe for Dr. Varghese) I personally scribed for ANT VARGHESE MD (JENNIFER) on 01/20/24 at 10:37. Electronically submitted by Sabas Strickland ([employer]). I personally scribed for ANT VARGHESE MD (JENNIFER) on 01/20/24 at 10:48. Elec tronically submitted by Sabas Strickland ([employer]). ANT VARGHESE MD Jan 20, 2024 09:39
--- NOTE | 2024-01-20 10:31 | HMCIMG ---
US VENOUS DOPPLER UNILATERAL HISTORY: Postop COMPARISON: None TECHNIQUE: Left lower extremity venous Doppler ultrasound study was performed. FINDINGS: The left common femoral, femoral, popliteal, and posterior tibial veins are visualized. Normal flow with augmentation and compressibilities are demonstrated. Left greater saphenous vein is patent. IMPRESSION: 1. No evidence of deep venous thrombosis is seen.
[2024-01-20 10:51] VITALS: BP 127/76; PULSE 67; RESP 18; TEMP 98.9; O2SAT 97
--- NOTE | 2024-01-20 10:57 | NUR ---
PT STABLE AAOX3, PT IN NO DISTRESS VITALS WNL NO C/O PAIN PT GIVEN COPY OF RAD / US RESULT, NO NEW MEDICATIONS THIS TIME. PT WALKED OUT TO LOBBY DRIVEN HOME BY DAUGHTER.
== END 2024-01-20 10:59 | disposition home or self-care (01) ==
LOC: EDH 09:28
DX: M79.89 Other specified soft tissue disorders (principal); M79.662 Pain in left lower leg; E78.00 Pure hypercholesterolemia, unspecified; I10 Essential (primary) hypertension; I48.91 Unspecified atrial fibrillation; Z79.01 Long term (current) use of anticoagulants; Z79.899 Other long term (current) drug therapy; Z90.49 Acquired absence of other specified parts of digestive tract; Z96.651 Presence of right artificial knee joint; Z98.890 Other specified postprocedural states
CPT/HCPCS: 93971; 99284